=== PATIENT | female | born 1975 | race Caucasian/White ===

== ENCOUNTER 2020-10-17 22:01 | Emergency (ER) | payer MEDICARE ==
[~2020-10-17] VITALS: Ht 165.1 cm; Wt 73.5 kg
[~2020-10-17 22:01] MED LIST: ALBUTEROL SULF8.5 GM INH; BUPROPION HCL150 M1 PO; MUCINEX600 MG PO; PEPCID AC20 MG PO; TEGRETOL 100 M100 MG PO; TRIUMEQ TABLET1 EACH PO; ZPAK PO; ZYPREXA10 MG PO
[2020-10-17 22:16] VITALS: Ht 165.1 cm; Wt 73.5 kg
[2020-10-17 22:39] LABS: UDS - AMPHET NEGATIVE QUAL (NEGATIVE); UDS - BARB NEGATIVE QUAL (NEGATIVE); UDS - BENZO NEGATIVE QUAL (NEGATIVE); UDS - COCAINE NEGATIVE QUAL (NEGATIVE); UDS - OPIATE NEGATIVE QUAL (NEGATIVE); UDS - PCP NEGATIVE QUAL (NEGATIVE); UDS - THC NEGATIVE QUAL (NEGATIVE)
[2020-10-17 22:47] LABS: BILIRUBIN NEGATIVE (NEGATIVE); KETONE NEGATIVE (NEGATIVE); NITRITE NEGATIVE (NEGATIVE); UROBILINOGEN NORMAL mg/dL (< 2)
[2020-10-17 22:48] LABS: BASOPHILS 0.1 % (0-2); EOSINOPHILS 1.7 % (0-7); HEMATOCRIT 36.1 % (36.0-48.0); HEMOGLOBIN 11.9 g/dL (12-16); IMMATURE GRANULOCYTES 0.2 % (0-5); LYMPHOCYTE ABS# 2.76 10x3/uL (1.18-3.74); LYMPHOCYTES 25.7 % (15-50); NEUTROPHIL ABS# 6.91 10x3/uL (1.56-6.13); NEUTROPHILS 64.3 % (40-80); PLATELET COUNT 342 10x3/uL (130-400); RBC 3.72 10x6/uL (4.00-5.40); RDW 13.7 % (11.5-14.5); WBC 10.7 10x3/uL (4.8-10.8)
[2020-10-17 23:00] LABS: HCG URINE NEGATIVE (NEGATIVE)
[2020-10-17 23:01] LABS: ANION GAP 8.4 mmol/L (8-16); CALCIUM 8.5 mg/dL (8.5-10.1); CARBON DIOXIDE 28.2 mmol/L (21.0-32.0); POTASSIUM - SERUM 3.6 mmol/L (3.5-5.1)
[2020-10-17 23:09] LABS: ALBUMIN 3.3 g/dL (3.4-5.0); BILIRUBIN - TOTAL 0.23 mg/dL (0.2-1.3); MAGNESIUM - SERUM 1.9 mg/dL (1.8-2.4); PROTEIN - SERUM 6.7 g/dL (6.4-8.2)
[2020-10-17 23:11] LABS: VALPROIC ACID (DEPAKOTE) 0.2 ug/mL (50.0-100.0)
[2020-10-18] MEDS ORDERED: SEROQUEL100 MG PO (00:30)
[2020-10-18] MEDS ORDERED: LITHIUM CARBON150 MG (00:31)
[2020-10-18] MEDS ORDERED: PERPHENAZINE2 MG PO (00:31)
[2020-10-18 00:58] LABS: SARS-CoV-2 ANTIGEN NEGATIVE- SARS-COV-2 (NEGATIVE)
--- NOTE | 2020-10-18 01:06 | NUR ---
DR. FERNANDEZ NOTIFIED AND SITTER ORDERED. SITTER AT BEDSIDE. NOTIFIED CHARGE NURSE AND ATTENDING IN REGARDS TO ASSESSMENT FINDINGS. RESOURCES GIVEN TO PATIENT AND SAFETY PLAN INITIATED.
[2020-10-18 04:33] VITALS: BP 128/77
== END 2020-10-18 04:35 ==
LOC: D.ER 22:01
PROVIDERS: Family Medicine
DX: R45.851 Suicidal ideations (principal); Z21 Asymptomatic human immunodeficiency virus [HIV] infection status

== ENCOUNTER 2020-11-21 04:26 | Emergency (ER) | payer MEDICARE ==
[~2020-11-21] VITALS: Ht 165.1 cm; Wt 86.4 kg
[~2020-11-21 04:26] MED LIST changes: +LITHIUM CARBON150 MG; +PERPHENAZINE2 MG PO; +SEROQUEL100 MG PO
[2020-11-21 04:30] VITALS: Ht 165.1 cm; Wt 86.4 kg
[2020-11-21 05:06] LABS: BASOPHILS 0.2 % (0-2); EOSINOPHILS 3.2 % (0-7); HEMATOCRIT 37.3 % (36.0-48.0); HEMOGLOBIN 12.3 g/dL (12-16); IMMATURE GRANULOCYTES 0.2 % (0-5); LYMPHOCYTE ABS# 2.59 10x3/uL (1.18-3.74); LYMPHOCYTES 20.8 % (15-50); MCH 32.5 pg (26.0-34.0); MCV 98.7 fL (80.0-100.0); MEAN PLATELET VOLUME 9.3 fL (7.4-10.4); MONOCYTES 9.4 % (2-11); NEUTROPHIL ABS# 8.26 10x3/uL (1.56-6.13); NEUTROPHILS 66.2 % (40-80); RBC 3.78 10x6/uL (4.00-5.40); RDW 13.5 % (11.5-14.5); WBC 12.5 10x3/uL (4.8-10.8)
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
[2020-11-21 05:12] LABS: PLATELET COUNT 424 10x3/uL (130-400)
[2020-11-21 05:29] LABS: CALC OSMOLALITY 273 mosm/kg (275-300); CALCIUM 9.2 mg/dL (8.5-10.1); CHLORIDE - SERUM 104 mmol/L (98-107); CREATININE - SERUM 0.8 mg/dL (0.6-1.3); GLUCOSE 98 mg/dL (74-106); LITHIUM 0.27 mmol/L (0.60-1.20); POTASSIUM - SERUM 3.9 mmol/L (3.5-5.1); SALICYLATES 0.7 mg/dL (2.8-20.0); SODIUM 137 mmol/L (136-145); UREA NITROGEN 13 mg/dL (7-18); eGFR NON AFRICAN AMERICAN 83 mL/min (90-120)
[2020-11-21 05:33] LABS: ALBUMIN 3.3 g/dL (3.4-5.0); ALKALINE PHOSPHATASE 93 U/L (30-120); ALT (SGPT) 33 U/L (10-68); BILIRUBIN - TOTAL 0.19 mg/dL (0.2-1.3); CARBAMAZEPINE (TEGRETOL) 2.7 ug/mL (4.0-12.0); PROTEIN - SERUM 7.4 g/dL (6.4-8.2)
[2020-11-21 06:01] LABS: BILIRUBIN NEGATIVE (NEGATIVE); KETONE NEGATIVE (NEGATIVE); NITRITE NEGATIVE (NEGATIVE); UROBILINOGEN NORMAL mg/dL (< 2)
[2020-11-21 06:07] LABS: UDS - AMPHET NEGATIVE QUAL (NEGATIVE); UDS - BARB NEGATIVE QUAL (NEGATIVE); UDS - BENZO NEGATIVE QUAL (NEGATIVE); UDS - COCAINE NEGATIVE QUAL (NEGATIVE); UDS - OPIATE NEGATIVE QUAL (NEGATIVE); UDS - PCP NEGATIVE QUAL (NEGATIVE); UDS - THC NEGATIVE QUAL (NEGATIVE)
[2020-11-21 11:06] LABS: SARS-CoV-2 ANTIGEN NEGATIVE- SARS-COV-2 (NEGATIVE)
[2020-11-22 02:46] VITALS: BP 123/74
== END 2020-11-22 02:48 ==
LOC: D.ER 04:26
PROVIDERS: Emergency Medicine
DX: F31.89 Other bipolar disorder (principal)

== ENCOUNTER 2020-12-04 03:07 | Emergency (ER) | payer MEDICARE ==
[~2020-12-04] VITALS: Ht 165.1 cm; Wt 68.0 kg
[2020-12-04 03:08] VITALS: BP 136/85; Ht 165.1 cm; Wt 68.0 kg
[2020-12-04] MEDS ORDERED: ZYPREXA10 MG PO (04:14)
== END 2020-12-04 04:36 | disposition home or self-care (01) ==
LOC: D.ER 03:07
DX: F31.9 Bipolar disorder, unspecified (principal); Z76.0 Encounter for issue of repeat prescription

== ENCOUNTER 2020-12-05 11:21 | Emergency (ER) | payer MEDICARE ==
[~2020-12-05] VITALS: Ht 165.1 cm; Wt 81.8 kg
[2020-12-05 11:35] VITALS: Ht 165.1 cm; Wt 81.8 kg
== END 2020-12-05 12:31 | disposition home or self-care (01) ==
LOC: D.ER 11:21
DX: F41.9 Anxiety disorder, unspecified (principal); F32.9 Major depressive disorder, single episode, unspecified

== ENCOUNTER 2020-12-07 20:00 | Emergency (ER) | payer MEDICARE ==
[~2020-12-07] VITALS: Ht 165.1 cm; Wt 68.2 kg
[2020-12-07 20:03] VITALS: Ht 165.1 cm; Wt 68.2 kg
[2020-12-07 20:18] LABS: BILIRUBIN NEGATIVE (NEGATIVE); KETONE NEGATIVE (NEGATIVE); NITRITE NEGATIVE (NEGATIVE); UROBILINOGEN NORMAL mg/dL (< 2)
[2020-12-07 20:24] LABS: UDS - AMPHET NEGATIVE QUAL (NEGATIVE); UDS - BARB NEGATIVE QUAL (NEGATIVE); UDS - BENZO NEGATIVE QUAL (NEGATIVE); UDS - COCAINE NEGATIVE QUAL (NEGATIVE); UDS - OPIATE NEGATIVE QUAL (NEGATIVE); UDS - PCP NEGATIVE QUAL (NEGATIVE); UDS - THC NEGATIVE QUAL (NEGATIVE)
[2020-12-07 20:30] LABS: BASOPHILS 0.3 % (0-2); EOSINOPHILS 1.5 % (0-7); HEMATOCRIT 36.1 % (36.0-48.0); IMMATURE GRANULOCYTES 0.3 % (0-5); LYMPHOCYTE ABS# 3.04 10x3/uL (1.18-3.74); LYMPHOCYTES 25.5 % (15-50); MCH 32.7 pg (26.0-34.0); MCHC 33.2 g/dL (31.0-37.0); MCV 98.4 fL (80.0-100.0); MEAN PLATELET VOLUME 9.5 fL (7.4-10.4); MONOCYTES 6.7 % (2-11); NEUTROPHIL ABS# 7.85 10x3/uL (1.56-6.13); NEUTROPHILS 65.7 % (40-80); PLATELET COUNT 356 10x3/uL (130-400); RBC 3.67 10x6/uL (4.00-5.40); RDW 13.1 % (11.5-14.5); WBC 11.9 10x3/uL (4.8-10.8)
[2020-12-07 20:42] LABS: ANION GAP 10.2 mmol/L (8-16); CALCIUM 9.2 mg/dL (8.5-10.1); CARBON DIOXIDE 28.4 mmol/L (21.0-32.0); CREATININE - SERUM 0.9 mg/dL (0.6-1.3); POTASSIUM - SERUM 3.6 mmol/L (3.5-5.1)
[2020-12-07 20:48] LABS: ALBUMIN 3.2 g/dL (3.4-5.0); BILIRUBIN - TOTAL 0.26 mg/dL (0.2-1.3); CARBAMAZEPINE (TEGRETOL) 5.4 ug/mL (4.0-12.0); MAGNESIUM - SERUM 2.2 mg/dL (1.8-2.4)
[2020-12-07 21:00] LABS: LITHIUM 0.69 mmol/L (0.60-1.20); SALICYLATES 0.4 mg/dL (2.8-20.0)
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
[2020-12-07 22:11] LABS: SARS-CoV-2 ANTIGEN NEGATIVE- SARS-COV-2 (NEGATIVE)
[2020-12-07 23:33] VITALS: BP 117/70
== END 2020-12-07 23:33 | disposition home or self-care (01) ==
LOC: D.ER 20:00
PROVIDERS: Family Medicine
DX: F32.9 Major depressive disorder, single episode, unspecified (principal); Z63.0 Problems in relationship with spouse or partner; R45.851 Suicidal ideations